=== PATIENT | male | born 1995 | race Caucasian/White ===

== ENCOUNTER 2016-12-08 17:05 | Emergency (ER) | payer OTHER ==
[~2016-12-08 17:05] MED LIST: ALLEGRA180 MG PO; BENTYL20 MG PO; CLARITIN10 MG PO; FLEXERIL10 MG PO; IBUPROFEN PO; IBUPROFEN800 MG PO; NO MEDICATIONS; PHENERGAN25 M1 PO; SINGULAIR PO; TYLENOL #3 PO; VOLTAREN75 MG PO
[2016-12-08 17:12] LABS: INFLUENZA A NEG (NEG); INFLUENZA B NEG (NEG)
== END 2016-12-08 17:47 | disposition home or self-care (01) ==
LOC: SED 17:05
PROVIDERS: Nurse Practitioner Family
DX: R51 Headache (principal); J45.909 Unspecified asthma, uncomplicated
CPT/HCPCS: 87804; 99283